=== PATIENT | female | born 1990 | race Caucasian/White ===

== ENCOUNTER 2021-09-25 10:09 | Outpatient (RCR) | payer MEDICARE, OTHER, SELFPAY ==
--- NOTE | 2021-09-25 14:10 | ST.OPIE ---
Addendum entered and electronically signed by Viviana Hopkins 09/25/21 14:16: [place] [address] [place] [address] LISTED BELOW Original Note: Visit Care Team Role Provider Type Radha Velez DO Attending Provider Non-Staff Family Provider Primary Care Provider Referring Provider Specialty: Medical Address: [address] [place] [address], [facility] Email: Speech-Language Pathology Initial Evaluation ASSISTANT THERAPY AIDE Clinical Swallow Evaluation Start: 09/25/21 13:11 Freq: Status: Active Protocol: Document 09/25/21 13:15 LNK (Rec: 09/25/21 14:09 LNK [id number]) Clinical Swallow Evaluation Session Time Visit Start Time 10:30 Visit Stop Time 11:30 Total Visit Minutes 60 Visit Information Visit Number 1 Plan of Care Dates 09/25/21-12/26/[address] Michelle Velez Setting Assessment Location Outpatient Care Visit Type Note Type Initial evaluation Next Note Type Next Note Type Re-evaluation Patient Information Identification Type Name,Date of History Jazmin was seen for a dysphagia evaluation secondary to frequent coughing when drinking water. 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 She had had years of speech therapy. Her mother noted that she thinks Jazmin is choking more; Jazmin choked on saliva a few weeks ago that scared her mother. 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 Jazmin last had MBSS evaluations 10+ years ago . She has seen an ENT, but that also was 10+ years ago. Subjective Observations Genet attended the session along with her mother Reported by Patient Other Symptoms Difficulty swallowing liquids, Difficulty swallowing solids Comment If she does not chew solids well enough, she will likely choke. Current Diet Regular,Thin liquids Baseline Feeding Method Independent in self-feeding Objective Assessment Mental Status Alert,Responsive,Cooperative Oral Integrity WFL Dentition Within normal limits Lip Function Within normal limits Observation of Lips at Rest Symmetrical Alternating Pucker/Lip Retraction Within normal limits Tongue Function Within normal limits Observations of Tongue at Rest Within normal limits Tongue Protrusion Within normal limits Tongue Lateralization Within normal limits Observations of Jaw at Rest Within normal limits Comment OME indicated structures and ROM are WFL Food and Liquid Trials Results PO trials were not attempted due to time constraints. Pharyngeal phase dysphagia is suspected. Further, as Jazmin reports paretic right vocsl fold, it is unknown if the vocal fold is functional for voicing clearly (Jazmin's voice is very breathy) or safe swallowing. A Modified Barium Swallow Study is necessary to observe the pharynx while Jazmin is swallowing to determine the if she can safely swallow, especially liquids. Additionally an updated evaluations of Jazmin's current right vocal fold status and how the paretic vocal fold is/is not contributing to her choking. A referral to an ENT with stroboscopy ([facility] or [facility]) is recommended. Additionally a referral for MBSS at [facility] is recommended. This information would contribute significantly to developing her POC. Findings Swallowing Function Pharyngeal phase dysphagia Swallowing Function Comments unknown status of pharyngeal phase of swallowing/vocal fold Recommendations Instrumental Assessment Yes Frequency Pending results of MBSS and insurance authorization Recommended Solids Regular Recommended Liquids Thin Other Recommendations Implement Supraglottic swallow strategy to reduce frequency of cough/choking Comments Treatment pending Insurance approval for correct ICD10 code [id number] Education Patient/Caregiver Education Patient expressed agreement with goals & treatment plans, Family/caregivers expressed understanding of evaluation
--- NOTE | 2021-09-25 14:19 | ST.OPIE ---
Visit Care Team Role Provider Type Radha Velez DO Attending Provider Non-Staff Family Provider Primary Care Provider Referring Provider Specialty: Medical Address: [address] [place] [address], [id number] Email: Speech-Language Pathology Initial Evaluation SPECIAL EDUCATION EDUCATIONAL ASSISTANT Clinical Swallow Evaluation Start: 09/25/21 13:11 Freq: Status: Active Protocol: Document 09/25/21 13:15 LNK (Rec: 09/25/21 14:09 LNK [id number]) Clinical Swallow Evaluation Session Time Visit Start Time 10:30 Visit Stop Time 11:30 Total Visit Minutes 60 Visit Information Visit Number 1 Plan of Care Dates 09/25/21-12/26/[address] Michelle Velez Setting Assessment Location Outpatient Care Visit Type Note Type Initial evaluation Next Note Type Next Note Type Re-evaluation Patient Information Identification Type Name,Date of History Jazmin was seen for a dysphagia evaluation secondary to frequent coughing when drinking water. 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 She had had years of speech therapy. Her mother noted that she thinks Jazmin is choking more; Jazmin choked on saliva a few weeks ago that scared her mother. 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 Jazmin last had MBSS evaluations 10+ years ago . She has seen an ENT, but that also was 10+ years ago. Subjective Observations Genet attended the session along with her mother Reported by Patient Other Symptoms Difficulty swallowing liquids, Difficulty swallowing solids Comment If she does not chew solids well enough, she will likely choke. Current Diet Regular,Thin liquids Baseline Feeding Method Independent in self-feeding Objective Assessment Mental Status Alert,Responsive,Cooperative Oral Integrity WFL Dentition Within normal limits Lip Function Within normal limits Observation of Lips at Rest Symmetrical Alternating Pucker/Lip Retraction Within normal limits Tongue Function Within normal limits Observations of Tongue at Rest Within normal limits Tongue Protrusion Within normal limits Tongue Lateralization Within normal limits Observations of Jaw at Rest Within normal limits Comment OME indicated structures and ROM are WFL Food and Liquid Trials Results PO trials were not attempted due to time constraints. Pharyngeal phase dysphagia is suspected. Further, as Jazmin reports paretic right vocal fold, it is unknown if the vocal fold is functional for voicing clearly (Jazmin's voice is very breathy) or safe swallowing. A Modified Barium Swallow Study is necessary to observe the pharynx while Jazmin is swallowing to determine the if she can safely swallow, especially liquids. Additionally an updated evaluations of Jazmin's current right vocal fold status and how the paretic vocal fold is/is not contributing to her choking. A referral to an ENT with stroboscopy ([facility] or [facility]) is recommended. Additionally a referral for MBSS at [facility] is recommended. This nformation would contribute significantly to developing her POC. Findings Swallowing Function Pharyngeal phase dysphagia Swallowing Function Comments unknown status of pharyngeal phase of swallowing/vocal fold status Comments hemiparesis of total right side of her body Recommendations Instrumental Assessment Yes Frequency Pending results of MBSS and insurance authorization Recommended Solids Regular Recommended Liquids Thin Other Recommendations Implement Supraglottic swallow strategy to reduce frequency of cough/choking Comments Treatment pending Insurance approval for correct ICD10 code [id number] Education Patient/Caregiver Education Patient expressed agreement with goals & treatment plans, Family/caregivers expressed understanding of evaluation
--- NOTE | 2022-01-25 10:25 | ST.IPDYTX ---
Visit Care Team Role Provider Type Radha Velez DO Attending Provider Non-Staff Family Provider Primary Care Provider Referring Provider Specialty: Medical Address: [address] [place] [address], [id number] Email: CLUTCH SPECIALIST Dysphagia Treatment CLUTCH SPECIALIST Dysphagia Treatment Start: 09/25/21 13:11 Freq: Status: Active Protocol: Document 01/25/22 10:22 LNK (Rec: 01/25/22 10:24 LNK [id number]) Dysphagia Treatment Visit Type Note Type Cancellation Patient Information Subjective Observations Pt was seen for a clinical swallowing evaluation on . She has not returned to this clinic since her original assessment. Treatment Plan Appropriate for Continued Therapy No: DISCHARGE
== END 2022-01-29 14:02 ==
LOC: SP 10:09
PROVIDERS: Family Provider Family Medicine; PCP Family Medicine; Referring Provider Family Medicine; Visit Provider Family Medicine
DX: R13.10 Dysphagia, unspecified (principal); G83.9 Paralytic syndrome, unspecified
CPT/HCPCS: 92610